=== PATIENT | male | born 1965 | race Caucasian/White ===

== ENCOUNTER 2021-01-27 13:35 | Emergency (ER) | payer MEDICAID, SELFPAY ==
[2021-01-27] VITALS (10 sets, daily range): BP systolic 128–180; BP diastolic 63–98; PULSE 74–115; RESP 13–20; TEMP 36.6–37; O2SAT 92–98; BMI 35.6
--- NOTE | 2021-01-27 13:39 | NURSING ---
NO OLD EKGS
--- NOTE | 2021-01-27 14:27 | EKG12_ITS ---
Test Reason : CP Blood Pressure : / mmHG Vent. Rate : 112 BPM Atrial Rate : 112 BPM P-R Int : 162 ms QRS Dur : 088 ms QT Int : 308 ms P-R-T Axes : 053 006 073 degrees QTc Int : 420 ms Sinus tachycardia Otherwise normal ECG Confirmed by SUZAN MORRISON, KAITLIN ([id number]), editor index SYD NUNO ([id number]) on 01/30/2021 2:17:10 PM Referred By: TL Confirmed By:KAITLIN MARES MD
[2021-01-27] MEDS: Ipratropium/Albuterol Sulfate 3 ML AMPUL.NEB INHALATION (14:37)
[2021-01-27 14:40] LABS: Absolute Lymphocyte Count 1.29 X10^3/uL (0.83-4.51); Absolute Neutrophil Count 5.2 X10^3/uL (2.0-7.7); Basophil# 0.05 X10^3/uL; Basophil% 0.7 % (0-1); Eosinophil# 0.16 X10^3/uL; Eosinophils% 2.1 % (0-5); Hematocrit 48.3 % (40-54); Hemoglobin 15.2 g/dL (13.0-16.5); Lymphocyte # 1.29 X10^3/ul (0.83-4.51); Mean Corp Hgb Conc 31.5 g/dL (32-36); Mean Corpuscular Hgb 29.3 pg (27.0-32.0); Mean Corpuscular Volume 93.2 fL (80-94); Mean Platelet Vol. 9.3 fl (6.2-12.0); Monocyte# 0.89 X10^3/uL; Monocyte% 11.7 % (0-10); NRBC Flagged by Analyzer 0 % (0-5); Neutrophil # 5.15 X10^3/uL (2.7-7.7); Neutrophil % 67.8 % (47-70); Platelet Count 252 K/mm3 (150-450); RBC Distribution Width CV 13.8 % (11.6-14.6); RBC Distribution Width SD 47.7 fl (35.1-43.9); Red Blood Count 5.18 M/mm3 (4.6-6.2); White Blood Count 7.6 K/mm3 (4.4-11.0)
--- NOTE | 2021-01-27 14:53 | EDS_ITS ---
HPI History of Present Illness Chief Complaint: Chest Pain Informant: patient Narrative Narrative: Patient here multiple complaints. Reports feeling ill 4 days ago with cough. Yesterday diffuse myalgias headache and chest pains this morning. No vomiting or diarrhea. No loss of taste or smell. Denies fever. History of COPD along with coronary disease states had MIs x5 however no stenting. Reports his last cath was 6 months ago in [place]. He is traveling with the [employer]. He states he is not vaccinated and was recommended by his PCP down in [place]. Tobacco history. States chest heaviness. States he is on aspirin and Plavix. He states he ran out of his inhaler. History of hypertension, diabetes, hypercholesterolemia and tobacco. Denies history of PE or DVT. Prior Similar Symptoms: Yes CVD Risk Factors: Positive for Hypertension, Diabetes, Hypercholesterolemia and Smoking [facility] Medical History COPD (chronic obstructive pulmonary disease) Coronary artery disease Diabetes Hypertension Myocardial infarct Home Medications albuterol sulfate [Ventolin HFA] 1 - 2 puff INHALATION Q4H PRN PRN #1 inhaler 01/27/21 [Rx Last Taken Unknown] azithromycin 250 mg PO DAILY #4 tab 01/27/21 [Rx Last Taken Unknown] prednisone 60 mg PO DAILY #12 tab 01/27/21 [Rx Last Taken Unknown] Allergy/AdvReac Type Severity Reaction Status Date / Time Penicillins Allergy Anaphylaxis Verified 01/27/21 13:40 Surgical History History of coronary artery stent placement Social History Smoking Status: Former smoker ROS ROS ED Constitutional Constitutional ED: Denies chills, fever(s) or sweats Eyes Eyes: Denies change in vision ENT ENT ED: Denies dysphagia or sore throat Cardiovascular Cardiovascular: Reports chest pain; Denies leg edema, palpitations or racing heartbeat Respiratory/Chest Respiratory/Chest: Reports cough and dyspnea; Denies dyspnea on exertion Gastrointestinal Gastrointestinal: Denies abdominal pain, diarrhea, nausea or vomiting Genitourinary Genitourinary ED: Denies dysuria, hematuria or urinary frequency Musculoskeletal Musculoskeletal: Denies back pain, extremity pain or neck pain Integumentary Denies rash or wounds Neurologic Neurologic: Reports headache(s); Denies paresthesias or weakness EXAM Physical Exam Const Vital Signs: 01/27/21 13:36 01/27/21 13:42 01/27/21 14:39 Temperature 97.9 F 97.9 F Temperature Source Temporal Temporal Pulse Rate 115 H 115 H 110 H Respiratory Rate 20 H 20 H 20 H Respiratory Pattern Tachypnea Blood Pressure 180/98 H 180/98 H Blood Pressure Mean 125 125 Pulse Ox 92 92 Oxygen Delivery Method Room Air Room Air Oxygen Flow Rate (L/min) 01/27/21 14:52 01/27/21 14:54 01/27/21 16:18 Temperature 98.4 F Temperature Source Temporal Pulse Rate 105 H 92 Respiratory Rate 13 Respiratory Pattern Blood Pressure 146/89 H 132/86 H Blood Pressure Mean 108 101 Pulse Ox 98 98 98 Oxygen Delivery Method Nasal Cannula Nasal Cannula Oxygen Flow Rate (L/min) 2 2 01/27/21 16:19 01/27/21 17:35 01/27/21 17:37 Temperature 98.6 F 98.6 F Temperature Source Oral Temporal Pulse Rate 74 88 Respiratory Rate 17 16 16 Respiratory Pattern Blood Pressure 142/63 H 142/63 H Blood Pressure Mean 89 89 Pulse Ox 98 98 Oxygen Delivery Method Nasal Cannula Nasal Cannula Oxygen Flow Rate (L/min) 2 2 01/27/21 18:28 Temperature Temperature Source Pulse Rate 78 Respiratory Rate 16 Respiratory Pattern Blood Pressure 128/77 H Blood Pressure Mean Pulse Ox 98 Oxygen Delivery Method Oxygen Flow Rate (L/min) Positive well nourished and well developed General Appearance ED: well developed and NAD HEENT Reports dry mucous membranes normocephalic and atraumatic Mouth ED: Yes dry mucous membranes Mouth: dry mucous membranes Eyes PERRL, EOMs intact bilaterally and conjunctivae normal General Eye ED: Yes normal appearance of both eyes Neck no lymphadenopathy and supple Neck Narrative: No meningismus General: Negative for tenderness Chest Wall Chest: Negative for tenderness Resp normal respiratory effort and normal air movement Resp Narrative: Expiratory wheezing lower lobes Effort and Inspection: symmetric chest movement; Negative for respiratory distress Cardio regular rhythm and no murmurs Rate: tachycardic Peripheral Pulses: pulses 2+ throughout GI normal to inspection, nondistended, normoactive bowel sounds and non-tender Palpation: Negative for guarding or rebound tenderness present Back/Spine no CVA tenderness and no thoracic nor lumbar tenderness Extremity normal to inspection General Extremety ED: Negative for edema or tenderness General Extremity: Negative for edema Neuro oriented x3 and no sensory deficits noted Sensorium / Orientation: awake and alert Skin no rashes or lesions noted and no wounds Heart Score History: Slightly/Non-Suspicious ECG: Normal Age: >45 - <65 years Risk Factors: >/= 3 Risk Factors or History of CAD Troponin: </= Normal Limit Score: 3 MDM MDM MDM Narrative Medical decision making narrative: Patient presenting with chest pain along with cough with sputum. Wheezing on exam. Does have a history of COPD. Given aerosol treatment with improved wheezing. Cardiac work-up negative with high sensitive troponin x2. Chest x-ray negative for infiltrates however noted multiple pulmonary nodule concerns. He does have tobacco history. He was tachycardic, concerns of his chest pains along with nodules, CTA chest obtained negative for PE, there is no noted nodules on CT. Blood glucose 155. He was given prednisone with his COPD history with wheezing. Antibiotic started with his productive sputum treatment according to Gold's criteria. Discussed tobacco cessation. 4 additional days of steroids antibiotics and inhaler as written for patient. He declined Covid testing in the ED. Signs and symptoms discussed to return. Heart rate improved with fluids. Blood pressure elevated also improved on reevaluation. Pulse ox 98% upon discharge. Heart score is a 3. Patient is being discharged under pandemic conditions under declared global, national and state disaster activation, with limited medical resources. Patient and community understands this. Results discussed in layman's terms to the patient satisfaction. All questions answered in layman's terms. Patient understands importance of follow-up care as directed. Patient has been instructed to return to the ED immediately if new symptoms, problems, or questions occur. We mutually agree with the plan of disposition. The patient understand that they may call or return with any questions or concerns at any time. Lab Data Labs: Laboratory Results - last 24 hr 01/27/21 01/27/21 01/27/21 14:35 14:35 16:27 WBC 7.6 RBC 5.18 Hgb 15.2 Hct 48.3 MCV 93.2 MCH 29.3 MCHC 31.5 L RDW Std Deviation 47.7 H RDW Coeff of Neetu 13.8 Plt Count 252 MPV 9.3 Immature Gran % (Auto) 0.700 Neut % (Auto) 67.8 Lymph % (Auto) 17.0 L Harmon % (Auto) 11.7 H Eos % (Auto) 2.1 Baso % (Auto) 0.7 Absolute Neuts (auto) 5.2 Absolute Lymphs (auto) 1.29 Nucleated RBC % 0 Sodium 136 Potassium 4.1 Chloride 101 Carbon Dioxide 33.0 H Anion Gap 2 L BUN 13 Creatinine 0.88 Estim Creat Clear Calc 102.21 Est GFR (MDRD) Af Amer 116 Est GFR (MDRD) Non-Af 96 BUN/Creatinine Ratio 14.9 Glucose 155 H Calcium 8.6 Troponin I High Sens 8 8 Radiography Chest X-Ray - ED: 1 View, Read by ED Physician and Read by Radiologist Diagnostic Testing: Radiology Impression Chest X-Ray 01/27/21 15:53 IMPRESSION: Small left-sided pulmonary nodules. Correlation with prior examinations would be of benefit in determining stability. Alternatively a CT of the chest could be performed on a nonemergent basis. Electronically Signed: Jhony Duke DO at 16:17 EDT Tel [phone], Service support , Chest CTA 01/27/21 17:12 IMPRESSION: 1. No evidence of pulmonary embolus. 2. No aortic dissection or aneurysm. 3. Emphysematous changes in lungs without mass or infiltrate. Electronically Signed: Jhony Duke DO at 17:58 EDT Tel [phone], Service support , EKG Initial EKG: Attestation: I personally reviewed and interpreted this EKG as follows: Comments: Sinus tachycardia rate of 112, no ST or T wave changes. Discharge Plan Triage Chief Complaint: Chest Pain ED Provider: Parveen Armijo Dx/Rx/DC Orders Instructions: ED COPD Flare, ED Chest Pain, Uncertain Cause Prescriptions: New azithromycin [azithromycin] 250 MG tablet 250 mg PO DAILY Qty: 4 RF: 0 prednisone 20 MG tablet 60 mg PO DAILY Qty: 12 RF: 0 albuterol sulfate [Ventolin HFA] 1 INHALER inhaler 1 - 2 puff inhalation Q4H PRN PRN (Reason: Wheezing) Qty: 1 RF: 0 Referrals: Karin,Manual [Other] - 3-5 Days Disposition Disposition: Home, Self Care Discharge Date/Time: 01/27/21 18:29
[2021-01-27] MEDS: Aspirin 81 MG TAB.CHEW 324 MG PO (14:58)
[2021-01-27] MEDS: 0.9% Normal Saline 1,000 ML 999 ML IV (14:58)
[2021-01-27 15:01] LABS: Anion Gap 2 (5-15); BUN 13 mg/dL (7-18); BUN/Creat Ratio 14.9 RATIO (10-20); Calcium,Total 8.6 mg/dL (8.5-10.1); Chloride 101 mmol/L (98-107); Creatinine, Serum 0.88 mg/dL (0.70-1.30); EST Glomerular Filtration Rate 96 mL/min (>60); Est Glom Filt Rate - Afr Amer 116 mL/min (>60); Estimated Creatinine Clearance 102.21 ml/min; Glucose 155 mg/dL (74-106); Potassium 4.1 mmol/L (3.5-5.1); Sodium Level 136 mmol/L (136-145); Troponin-I HS 8 pg/mL (3.0-78.0)
--- NOTE | 2021-01-27 15:25 | ED.RN ---
PT REFUSING COVID SWAB UNLESS HE IS BEING ADMITTED. YOU ARE NOT DOING IT UNLESS I AM BEING ADMITTED BECAUSE YOU AREN'T DOING THAT TWICE LIKE LAST TIME. DR PETTY NOTIFIED
--- NOTE | 2021-01-27 15:53 | RAD_ITS ---
STUDY: X-RAY CHEST REASON FOR EXAM: Male, 55 years old. Chest pain. TECHNIQUE: Single AP portable view of the chest. COMPARISON: None. FINDINGS: The lungs are well expanded. There is a vague 7 mm nodular density at the left lung base which may represent a nodule or nipple shadow. There is a second 1 cm rounded nodule in the lateral left mid lung at the level of the ariana. The lungs appear otherwise clear. There is no demonstrated pleural abnormality. Normal size heart. Normal mediastinum and ariana. Normal visualized pulmonary arteries. Normal visualized aortic arch and descending thoracic aorta. Normal visualized thoracic spine. Normal visualized ribs, clavicles, and shoulders. There is no demonstrated abnormality of the visualized soft tissue structures of the upper abdomen. RAD/Chest 1 View (Portable) IMPRESSION: Small left-sided pulmonary nodules. Correlation with prior examinations would be of benefit in determining stability. Alternatively a CT of the chest could be performed on a nonemergent basis. Electronically Signed: Jhony Duke DO at 16:17 EDT Tel [phone], Service support ,
[2021-01-27 16:57] LABS: Troponin-I HS 8 pg/mL (3.0-78.0)
--- NOTE | 2021-01-27 17:12 | CT_ITS ---
STUDY: CTA CHEST REASON FOR EXAM: Male, 55 years old. Chest pain. Pulmonary nodules. RADIATION DOSAGE (If Supplied By Facility): CTDIvol = ( 12.36 ) mGy, DLP = ( 545.09 ) mGycm TECHNIQUE: The examination was performed with the intravenous administration of IV 100mL [id number]-370. Post-processing of the angiographic images was performed, with multiplanar reformation and 3D reconstruction. Individualized dose optimization techniques were used for this CT. COMPARISON: Chest, 01/27/2021. FINDINGS: Normal enhancement of the main pulmonary artery and right and left pulmonary arteries. Normal enhancement of the bilateral peripheral pulmonary arteries. There is no demonstrated pulmonary embolism. Normal thoracic aorta and visualized great vessels. There is no demonstrated aortic dissection. Normal heart and pericardium. There are calcifications of the coronary arteries. Nonspecific subcentimeter mediastinal lymphadenopathy. Normal hilar regions. Normal visualized trachea and bronchi. The lungs are well expanded. There is a large bullae in the medial right lung apex. Mild emphysematous changes in lungs without focal mass or infiltrate. Normal pleura. Normal chest wall structures. Normal osseous structures. Normal visualized upper abdomen. CT/CTA Chest W/WO Contrast IMPRESSION: 1. No evidence of pulmonary embolus. 2. No aortic dissection or aneurysm. 3. Emphysematous changes in lungs without mass or infiltrate. Electronically Signed: Jhony Duke DO at 17:58 EDT Tel [phone], Service support ,
[2021-01-27] MEDS: predniSONE 20 MG Tablet 60 MG PO (17:34)
[2021-01-27] MEDS: Azithromycin 250 MG Tablet 500 MG PO (18:25)
== END 2021-01-27 18:29 | disposition home or self-care (01) ==
PROVIDERS: Emergency Provider Emergency Medicine
DX: J44.1 Chronic obstructive pulmonary disease with (acute) exacerbation (principal); R07.9 Chest pain, unspecified; I25.10 Atherosclerotic heart disease of native coronary artery without angina pectoris; E11.9 Type 2 diabetes mellitus without complications; I10 Essential (primary) hypertension; I25.2 Old myocardial infarction; Z79.02 Long term (current) use of antithrombotics/antiplatelets; Z79.899 Other long term (current) drug therapy; Z87.891 Personal history of nicotine dependence
CPT/HCPCS: 71045; 71275; 80048; 84484; 85025; 93005; 94640; 96360; 99284; J7030; A4216